=== PATIENT | female | born 1945 | race Caucasian/White ===

== ENCOUNTER 2017-03-10 11:42 | Inpatient (IN) | payer OTHER ==
[~2017-03-10] VITALS: Ht 160 cm; Wt 80.9 kg
[2017-03-10] MEDS ORDERED: PANT40TA5 PO (14:02)
[2017-03-10] MEDS ORDERED: MORP60TA34 PO (14:02)
[2017-03-10] MEDS ORDERED: MORP100T27 PO (14:02)
[2017-03-10] MEDS ORDERED: ONDA4TAB10 PO (14:02)
[2017-03-10] MEDS ORDERED: MELO7.5T31 PO (14:02)
[2017-03-10] MEDS ORDERED: METO-95 PO (14:02)
[2017-03-10] MEDS ORDERED: SERT50TA5 PO (14:02)
[2017-03-10] MEDS ORDERED: OXYC30TA PO (14:02)
[2017-03-10] MEDS: ENOXAPARIN 40 MG/0.4 ML SQ SCH (14:30)
[2017-03-10] MEDS ORDERED: morphine SULFATE 10 MG/ML, 1ML IVPush PRN (14:30)
[2017-03-10] MEDS ORDERED: ENALAPRILAT 1.25 MG/ML, 2ML IVPush PRN (14:30)
[2017-03-10] MEDS ORDERED: ONDANSETRON ODT 4 MG PO PRN (14:30)
[2017-03-10] MEDS ORDERED: ONDANSETRON 2MG/ML, 2ML IVPush PRN (14:30)
[2017-03-10 14:50] LABS: HEMOGLOBIN 12.3 g/dL (11.7-16.4); WHITE BLOOD COUNT 9.7 x10^3/uL (3.4-10)
[2017-03-10] MEDS ORDERED: LABETALOL 5MG/ML, 20ML ONE (14:56)
[2017-03-10] MEDS ORDERED: LABETALOL 5MG/ML, 20ML IVPush PRN (15:00)
[2017-03-10] MEDS: PLEASE ENTER HEIGHT AND WEIGHT MC SCH ×2 (15:00→23:00)
[2017-03-10 15:01] LABS: ASPARTATE AMINO TRANSFERASE 17 U/L (15-37); BLOOD UREA NITROGEN 12 mg/dL (7-18)
[2017-03-10] MEDS: LABETALOL 5MG/ML, 20ML IVPush PRN ×2 (15:01→21:16)
[2017-03-10 15:02] VITALS: BP 204/91
[2017-03-10] MEDS ORDERED: ACETAMINOPHEN 325 MG TABLET ONE (15:33)
[2017-03-10] MEDS: ACETAMINOPHEN 325 MG TABLET PO PRN (15:34)
[2017-03-10] MEDS: OXYcodone IR 30 MG TABLET PO SCH ×2 (16:14→20:07)
[2017-03-10 17:04] LABS: IS PT STATUS REG ER OR PRE ER? NO
[2017-03-10] MEDS: LISINOPRIL 10 MG TABLET PO SCH ×2 (17:24→20:07)
[2017-03-10] MEDS ORDERED: MAGNESIUM SULFATE PMX 2GM/50ML 50 ML IV ONE (18:00)
[2017-03-10 19:15] VITALS: BP 191/96
[2017-03-10] MEDS ORDERED: OMNIPAQUE 350 MG/ML, 100ML BOTTLE ONE (19:17)
[2017-03-10] MEDS ORDERED: morphine SULFATE 60 MG TABLET.ER ONE (19:52)
[2017-03-10] MEDS: morphine SULFATE 60 MG TABLET.ER PO SCH (20:07)
[2017-03-10] MEDS: morphine SULFATE 100 MG TABLET.ER PO SCH (21:00)
[2017-03-10 21:15] VITALS: BP 180/86
[2017-03-10 22:30] VITALS: BP 183/83
[2017-03-10] MEDS: hydrALAzine 20 MG/ML, 1ML IV PRN (22:31)
[2017-03-10 23:02] LABS: IS PT STATUS REG ER OR PRE ER? NO
[2017-03-10 23:25] VITALS: BP 183/100
[2017-03-10] MEDS ORDERED: LORazepam 2 MG/ML, 1ML IVPush PRN (23:30)
[2017-03-10] MEDS ORDERED: hydrALAzine 20 MG/ML, 1ML IV ONE (23:30)
[2017-03-10] MEDS ORDERED: LORazepam 2 MG/ML, 1ML ONE (23:33)
[2017-03-11 00:20] VITALS: BP 149/67
[2017-03-11 02:45] VITALS: BP 150/72
[2017-03-11 05:50] LABS: BLOOD UREA NITROGEN 11 mg/dL (7-18)
[2017-03-11 06:13] LABS: IS PT STATUS REG ER OR PRE ER? NO
[2017-03-11] MEDS: PLEASE ENTER HEIGHT AND WEIGHT MC SCH (07:00)
[2017-03-11 07:05] LABS: HEMATOCRIT 35.2 % (34.6-47.8); HEMOGLOBIN 11.7 g/dL (11.7-16.4); WHITE BLOOD COUNT 6.8 x10^3/uL (3.4-10)
[2017-03-11 07:25] VITALS: BP 177/65
[2017-03-11] MEDS ORDERED: REGADENOSON 0.4 MG/5 ML SYRINGE ONE (08:07)
[2017-03-11] MEDS: HYDROCHLOROTHIAZIDE 25 MG TABLET PO SCH (08:14)
[2017-03-11] MEDS: OXYcodone IR 30 MG TABLET PO SCH ×4 (08:14→23:20)
[2017-03-11] MEDS: PANTOPROZOLE 40MG TABLET PO SCH (08:15)
[2017-03-11] MEDS: LISINOPRIL 10 MG TABLET PO SCH (08:15)
[2017-03-11] MEDS: SERTRALINE 50MG TABLET PO SCH (08:15)
[2017-03-11] MEDS: METOPROLOL SUCCINATE 100 MG TAB.ER.24H PO SCH (08:15)
[2017-03-11] MEDS: ACETAMINOPHEN 325 MG TABLET PO PRN ×4 (08:21→23:20)
[2017-03-11] MEDS: morphine SULFATE 100 MG TABLET.ER PO SCH ×2 (11:11→20:32)
[2017-03-11 12:30] VITALS: BP 181/78
[2017-03-11] MEDS ORDERED: LISINOPRIL 10 MG TABLET PO ONE (14:30)
[2017-03-11] MEDS: ENOXAPARIN 40 MG/0.4 ML SQ SCH (15:30)
[2017-03-11] MEDS: hydrALAzine 20 MG/ML, 1ML IV PRN (17:10)
[2017-03-11] MEDS ORDERED: OMNIPAQUE 350 MG/ML, 100ML BOTTLE ONE (17:33)
[2017-03-11] MEDS ORDERED: DEXAMETHASONE 4 MG/ML, 5ML IVPush PRN (18:30)
[2017-03-11 19:05] VITALS: BP 138/82
[2017-03-11] MEDS: AMLODIPINE 5 MG TABLET PO SCH (20:32)
[2017-03-11] MEDS: AMPICILLIN/SULBACTAM 3 GM in SODIUM CHLORIDE 0.9% 100 ML IV SCH (20:32)
[2017-03-11] MEDS: morphine SULFATE 60 MG TABLET.ER PO SCH (21:00)
[2017-03-11] MEDS: LISINOPRIL 20 MG TABLET PO SCH (23:23)
[2017-03-12 01:16] VITALS: BP 163/83
[2017-03-12] MEDS: AMPICILLIN/SULBACTAM 3 GM in SODIUM CHLORIDE 0.9% 100 ML IV SCH ×3 (02:56→14:17)
[2017-03-12] MEDS: ACETAMINOPHEN 325 MG TABLET PO PRN (05:24)
[2017-03-12] MEDS: OXYcodone IR 30 MG TABLET PO SCH (05:25)
[2017-03-12 06:16] LABS: HEMATOCRIT 37.1 % (34.6-47.8); HEMOGLOBIN 12.4 g/dL (11.7-16.4); WHITE BLOOD COUNT 6.4 x10^3/uL (3.4-10)
[2017-03-12 06:33] LABS: ASPARTATE AMINO TRANSFERASE 21 U/L (15-37); BLOOD UREA NITROGEN 10 mg/dL (7-18)
[2017-03-12 06:43] VITALS: BP 169/83
[2017-03-12] MEDS: morphine SULFATE 100 MG TABLET.ER PO SCH (08:38)
[2017-03-12] MEDS: HYDROCHLOROTHIAZIDE 25 MG TABLET PO SCH (08:43)
[2017-03-12] MEDS: SERTRALINE 50MG TABLET PO SCH (08:43)
[2017-03-12] MEDS: AMLODIPINE 5 MG TABLET PO SCH (08:43)
[2017-03-12] MEDS: PANTOPROZOLE 40MG TABLET PO SCH (08:43)
[2017-03-12] MEDS: LISINOPRIL 20 MG TABLET PO SCH (08:43)
[2017-03-12] MEDS: METOPROLOL SUCCINATE 100 MG TAB.ER.24H PO SCH (08:43)
[2017-03-12] MEDS: OXYcodone IR 30 MG TABLET PO PRN ×2 (09:45→14:17)
[2017-03-12 13:39] VITALS: BP 173/95
[2017-03-12] MEDS ORDERED: morphine SULFATE 100 MG TABLET.ER PO SCH (14:00)
[2017-03-12] MEDS: hydrALAzine 20 MG/ML, 1ML IV PRN (14:18)
[2017-03-12] MEDS ORDERED: LISI-170 PO (14:56)
[2017-03-12] MEDS ORDERED: HYDR25TA6 PO (14:56)
[2017-03-12] MEDS ORDERED: AMLO5TAB2 PO (14:56)
[2017-03-12] MEDS ORDERED: AMOX1TAB64 PO (14:56)
[2017-03-12 15:32] VITALS: BP 121/69
== END 2017-03-12 16:36 | disposition home or self-care (01) | DRG 291 ==
LOC: 5SO 11:42 → UNDOADMIN 11:42 → 5SO 12:35
PROVIDERS: ADMIT Family Medicine; ATTEND Family Medicine
DX: I11.0 Hypertensive heart disease with heart failure (principal); J18.9 Pneumonia, unspecified organism; E44.1 Mild protein-calorie malnutrition; J36 Peritonsillar abscess; I50.30 Unspecified diastolic (congestive) heart failure; E78.5 Hyperlipidemia, unspecified; M19.90 Unspecified osteoarthritis, unspecified site; F32.9 Major depressive disorder, single episode, unspecified; F41.9 Anxiety disorder, unspecified; G89.29 Other chronic pain; I20.9 Angina pectoris, unspecified; K11.20 Sialoadenitis, unspecified; M54.30 Sciatica, unspecified side; Z66 Do not resuscitate; Z79.899 Other long term (current) drug therapy; Z80.51 Family history of malignant neoplasm of kidney; Z82.3 Family history of stroke; Z82.5 Family history of asthma and other chronic lower respiratory diseases; Z83.3 Family history of diabetes mellitus; Z86.19 Personal history of other infectious and parasitic diseases; Z87.11 Personal history of peptic ulcer disease; Z88.5 Allergy status to narcotic agent; Z90.49 Acquired absence of other specified parts of digestive tract; Z90.710 Acquired absence of both cervix and uterus; Z68.31 Body mass index [BMI] 31.0-31.9, adult; I50.33 Acute on chronic diastolic (congestive) heart failure
CPT/HCPCS: 36415; 70491; 71275; 78452; 80048; 80053; 83735; 83880; 84484; 85025; 85379; 85610; 85730; 93005; 93017; 93306; J0295; J2405; J2785; Q9967; A9502; C9898; J0360; J2060; J3475

== ENCOUNTER 2017-03-24 13:19 | Inpatient (IN) | payer OTHER ==
[~2017-03-24] VITALS: Ht 157.5 cm; Wt 86.7 kg
[~2017-03-24 13:19] MED LIST: AMLO5TAB2 PO; AMOX1TAB64 PO; HYDR25TA6 PO; LISI-170 PO; MELO7.5T31 PO; METO-95 PO; MORP100T27 PO; MORP60TA34 PO; ONDA4TAB10 PO; OXYC30TA PO; PANT40TA5 PO; SERT50TA5 PO
[2017-03-24] MEDS ORDERED: SODIUM CHLORIDE 0.9%, 500ML IVBOLUS ONE (14:00)
[2017-03-24 14:18] LABS: HEMOGLOBIN 11.9 g/dL (11.7-16.4); WHITE BLOOD COUNT 29.3 x10^3/uL (3.4-10)
[2017-03-24 14:38] LABS: ASPARTATE AMINO TRANSFERASE 25 U/L (15-37); BLOOD UREA NITROGEN 57 mg/dL (7-18)
[2017-03-24 14:51] LABS: DIFF TOTAL CELLS COUNTED 200 CELL DIFF
[2017-03-24 14:52] LABS: VERIFY COUNTS? YES
[2017-03-24] MEDS ORDERED: ONDANSETRON ODT 4 MG PO PRN (16:00)
[2017-03-24] MEDS ORDERED: LABETALOL 5MG/ML, 20ML IVPush PRN (16:00)
[2017-03-24] MEDS ORDERED: OXYcodone IR 30 MG TABLET PO SCH (16:00)
[2017-03-24] MEDS ORDERED: ONDANSETRON 2MG/ML, 2ML IVPush PRN (16:00)
[2017-03-24 16:29] LABS: HEMOGLOBIN 11.4 g/dL (11.7-16.4); WHITE BLOOD COUNT 27.9 x10^3/uL (3.4-10)
[2017-03-24 16:31] LABS: DIFF TOTAL CELLS COUNTED 100 CELL DIFF
[2017-03-24 16:33] LABS: BLOOD UREA NITROGEN 57 mg/dL (7-18)
[2017-03-24] MEDS ORDERED: POTASSIUM CHLORIDE 20 MEQ TAB.ER.PRT PO ONE (17:00)
[2017-03-24 17:06] LABS: VERIFY COUNTS? YES
[2017-03-24 17:10] LABS: POTASSIUM,URINE RANDOM 26 mmol/L
[2017-03-24] MEDS ORDERED: HEPARIN 5,000 UNITS/ML, 1ML ONE (18:06)
[2017-03-24] MEDS ORDERED: POTASSIUM CHLORIDE 20 MEQ TAB.ER.PRT ONE (18:06)
[2017-03-24] MEDS: HEPARIN 5,000 UNITS/ML, 1ML SQ SCH (18:12)
[2017-03-24] MEDS: SODIUM CHLORIDE 0.9% 1,000 ML IV SCH (21:46)
[2017-03-24] MEDS: OXYcodone IR 5MG TABLET PO SCH (21:47)
[2017-03-24] MEDS: morphine SULFATE 60 MG TABLET.ER PO SCH (21:48)
[2017-03-24 21:58] VITALS: BP 103/61
[2017-03-25 02:46] VITALS: BP 165/72
[2017-03-25 02:48] VITALS: BP 133/69
[2017-03-25 02:49] VITALS: BP 125/72
[2017-03-25] MEDS: OXYcodone IR 5MG TABLET PO SCH ×4 (05:45→20:48)
[2017-03-25] MEDS: HEPARIN 5,000 UNITS/ML, 1ML SQ SCH ×3 (05:45→20:48)
[2017-03-25] MEDS: SODIUM CHLORIDE 0.9% 1,000 ML IV SCH ×3 (05:46→22:45)
[2017-03-25 05:58] LABS: HEMATOCRIT 33.8 % (34.6-47.8); HEMOGLOBIN 11.2 g/dL (11.7-16.4); WHITE BLOOD COUNT 21.7 x10^3/uL (3.4-10)
[2017-03-25 05:59] LABS: BLOOD UREA NITROGEN 55 mg/dL (7-18)
[2017-03-25 07:20] VITALS: BP 131/65
[2017-03-25] MEDS ORDERED: CEFTRIAXONE PMX 1GM/50ML 50 ML IV SCH (07:30)
[2017-03-25] MEDS: METOPROLOL SUCCINATE 100 MG TAB.ER.24H PO SCH (09:18)
[2017-03-25] MEDS: METRONIDAZOLE PMX 500MG/100ML 100 ML IV SCH ×2 (09:18→16:37)
[2017-03-25] MEDS: morphine SULFATE 100 MG TABLET.ER PO SCH ×2 (09:19→15:56)
[2017-03-25 14:55] VITALS: BP 144/79
[2017-03-25 15:43] LABS: BLOOD UREA NITROGEN 50 mg/dL (7-18)
[2017-03-25 19:49] VITALS: BP 137/72
[2017-03-25] MEDS: morphine SULFATE 60 MG TABLET.ER PO SCH (20:48)
[2017-03-25] MEDS: HYDROcodone/APAP 5/325 TABLET PO PRN (22:54)
[2017-03-26] MEDS: METRONIDAZOLE PMX 500MG/100ML 100 ML IV SCH ×3 (00:58→16:51)
[2017-03-26 00:59] VITALS: BP 108/81
[2017-03-26] MEDS: HEPARIN 5,000 UNITS/ML, 1ML SQ SCH ×3 (05:00→20:05)
[2017-03-26 05:36] LABS: HEMOGLOBIN 10.5 g/dL (11.7-16.4); WHITE BLOOD COUNT 17.7 x10^3/uL (3.4-10)
[2017-03-26 05:49] LABS: BLOOD UREA NITROGEN 44 mg/dL (7-18)
[2017-03-26] MEDS: OXYcodone IR 5MG TABLET PO SCH ×4 (06:08→20:14)
[2017-03-26] MEDS: SODIUM CHLORIDE 0.9% 1,000 ML IV SCH ×2 (06:08→16:51)
[2017-03-26 06:25] LABS: DIFF TOTAL CELLS COUNTED 100 CELL DIFF
[2017-03-26 06:28] LABS: POLYCHROMASIA 1+; VERIFY COUNTS? YES
[2017-03-26 06:32] LABS: LARGE PLATELETS 1+
[2017-03-26 08:45] VITALS: BP 128/81
[2017-03-26] MEDS: morphine SULFATE 100 MG TABLET.ER PO SCH ×2 (08:46→16:51)
[2017-03-26] MEDS: METOPROLOL SUCCINATE 100 MG TAB.ER.24H PO SCH (08:46)
[2017-03-26 13:20] VITALS: BP 162/85
[2017-03-26 19:23] VITALS: BP 160/83
[2017-03-26] MEDS: morphine SULFATE 60 MG TABLET.ER PO SCH (20:15)
[2017-03-27 00:40] VITALS: BP 150/68
[2017-03-27] MEDS: HYDROcodone/APAP 5/325 TABLET PO PRN (00:50)
[2017-03-27] MEDS: METRONIDAZOLE PMX 500MG/100ML 100 ML IV SCH ×4 (00:51→20:33)
[2017-03-27] MEDS: SODIUM CHLORIDE 0.9% 1,000 ML IV SCH ×2 (03:18→15:46)
[2017-03-27] MEDS: HEPARIN 5,000 UNITS/ML, 1ML SQ SCH ×3 (05:00→20:32)
[2017-03-27] MEDS: OXYcodone IR 5MG TABLET PO SCH ×4 (06:03→20:33)
[2017-03-27 06:19] LABS: HEMATOCRIT 32.9 % (34.6-47.8); HEMOGLOBIN 10.9 g/dL (11.7-16.4); WHITE BLOOD COUNT 21.5 x10^3/uL (3.4-10)
[2017-03-27 06:28] LABS: ASPARTATE AMINO TRANSFERASE 8 U/L (15-37); BLOOD UREA NITROGEN 17 mg/dL (7-18)
[2017-03-27 07:18] VITALS: BP 169/83
[2017-03-27] MEDS ORDERED: MAGNESIUM SULFATE PMX 2GM/50ML 50 ML IV ONE (08:30)
[2017-03-27] MEDS: METOPROLOL SUCCINATE 100 MG TAB.ER.24H PO SCH (10:01)
[2017-03-27] MEDS: morphine SULFATE 100 MG TABLET.ER PO SCH ×2 (10:02→15:46)
[2017-03-27] MEDS: VANCOMYCIN 50 MG/ML ORAL SUSP PO SCH ×3 (11:39→23:31)
[2017-03-27 13:22] VITALS: BP 177/94
[2017-03-27 19:18] VITALS: BP 151/83
[2017-03-27] MEDS: morphine SULFATE 60 MG TABLET.ER PO SCH (20:37)
[2017-03-28 01:15] VITALS: BP 156/89
[2017-03-28] MEDS: METRONIDAZOLE PMX 500MG/100ML 100 ML IV SCH ×3 (03:23→20:15)
[2017-03-28] MEDS: HYDROcodone/APAP 5/325 TABLET PO PRN (03:23)
[2017-03-28] MEDS: HEPARIN 5,000 UNITS/ML, 1ML SQ SCH ×3 (04:46→20:10)
[2017-03-28 05:36] LABS: HEMATOCRIT 33.9 % (34.6-47.8); HEMOGLOBIN 11.2 g/dL (11.7-16.4); WHITE BLOOD COUNT 24.6 x10^3/uL (3.4-10)
[2017-03-28] MEDS: OXYcodone IR 5MG TABLET PO SCH ×4 (05:50→20:15)
[2017-03-28] MEDS: VANCOMYCIN 50 MG/ML ORAL SUSP PO SCH ×4 (05:50→23:44)
[2017-03-28 06:14] LABS: ASPARTATE AMINO TRANSFERASE 11 U/L (15-37); BLOOD UREA NITROGEN 7 mg/dL (7-18)
[2017-03-28 07:25] VITALS: BP 149/82
[2017-03-28] MEDS: morphine SULFATE 100 MG TABLET.ER PO SCH ×2 (09:00→16:06)
[2017-03-28] MEDS: METOPROLOL SUCCINATE 100 MG TAB.ER.24H PO SCH (09:00)
[2017-03-28] MEDS: SODIUM CHLORIDE 0.9% 1,000 ML IV SCH (09:00)
[2017-03-28 13:10] VITALS: BP 188/98
[2017-03-28 19:53] VITALS: BP 165/88
[2017-03-28] MEDS: morphine SULFATE 60 MG TABLET.ER PO SCH (20:15)
[2017-03-29 00:55] VITALS: BP 162/83
[2017-03-29] MEDS: HYDROcodone/APAP 5/325 TABLET PO PRN (02:14)
[2017-03-29] MEDS: SODIUM CHLORIDE 0.9% 1,000 ML IV SCH ×2 (02:15→17:38)
[2017-03-29] MEDS: HEPARIN 5,000 UNITS/ML, 1ML SQ SCH ×3 (05:00→21:00)
[2017-03-29] MEDS: OXYcodone IR 5MG TABLET PO SCH ×4 (05:24→21:11)
[2017-03-29] MEDS: VANCOMYCIN 50 MG/ML ORAL SUSP PO SCH ×4 (05:24→23:33)
[2017-03-29] MEDS: METRONIDAZOLE PMX 500MG/100ML 100 ML IV SCH ×3 (05:24→21:10)
[2017-03-29 07:43] VITALS: BP 159/82
[2017-03-29 08:58] LABS: HEMATOCRIT 37.1 % (34.6-47.8); HEMOGLOBIN 12.1 g/dL (11.7-16.4)
[2017-03-29 09:06] LABS: BLOOD UREA NITROGEN 5 mg/dL (7-18)
[2017-03-29] MEDS: METOPROLOL SUCCINATE 100 MG TAB.ER.24H PO SCH (09:22)
[2017-03-29] MEDS: morphine SULFATE 100 MG TABLET.ER PO SCH ×2 (09:22→15:34)
[2017-03-29 09:49] LABS: DIFF TOTAL CELLS COUNTED 100 CELL DIFF
[2017-03-29 09:54] LABS: ANISOCYTOSIS 1+; VERIFY COUNTS? YES
[2017-03-29 11:59] LABS: PATH.CAST-FLAG NOT PRESENT; SPERM-FLAG NOT PRESENT; SRC-FLAG NOT PRESENT; XTAL-FLAG NOT PRESENT; YLC-FLAG NOT PRESENT
[2017-03-29 13:39] VITALS: BP 167/84
[2017-03-29] MEDS: morphine SULFATE 60 MG TABLET.ER PO SCH (21:10)
[2017-03-29 21:13] VITALS: BP 180/82
[2017-03-29 22:04] VITALS: BP 158/81
[2017-03-30] MEDS: HYDROcodone/APAP 5/325 TABLET PO PRN (01:53)
[2017-03-30 01:54] VITALS: BP 169/85
[2017-03-30] MEDS: HEPARIN 5,000 UNITS/ML, 1ML SQ SCH ×2 (05:00→13:00)
[2017-03-30] MEDS: METRONIDAZOLE PMX 500MG/100ML 100 ML IV SCH ×2 (05:49→13:28)
[2017-03-30] MEDS: VANCOMYCIN 50 MG/ML ORAL SUSP PO SCH ×2 (05:49→11:03)
[2017-03-30] MEDS: OXYcodone IR 5MG TABLET PO SCH ×2 (05:49→11:03)
[2017-03-30 06:11] LABS: HEMATOCRIT 32.4 % (34.6-47.8); HEMOGLOBIN 10.6 g/dL (11.7-16.4); WHITE BLOOD COUNT 17.8 x10^3/uL (3.4-10)
[2017-03-30 06:17] LABS: BLOOD UREA NITROGEN 6 mg/dL (7-18)
[2017-03-30 07:34] VITALS: BP 158/79
[2017-03-30] MEDS: SODIUM CHLORIDE 0.9% 1,000 ML IV SCH (08:15)
[2017-03-30] MEDS: METOPROLOL SUCCINATE 100 MG TAB.ER.24H PO SCH (08:15)
[2017-03-30] MEDS: morphine SULFATE 100 MG TABLET.ER PO SCH (08:42)
[2017-03-30] MEDS ORDERED: SODIUM CHLORIDE 0.9% 1,000ML IVBOLUS ONE (09:30)
[2017-03-30] MEDS ORDERED: VANC1VIA3 PO (11:38)
[2017-03-30] MEDS ORDERED: METR500T PO (11:38)
[2017-03-30] MEDS ORDERED: LISI-170 PO (11:40)
[2017-03-30 12:47] VITALS: BP 176/83
== END 2017-03-30 15:46 | disposition home or self-care (01) | DRG 371 ==
LOC: ED 15:15 → EDIP 15:16 → ED 15:36 → 3NE 19:48
PROVIDERS: ADMIT Internal Medicine; ATTEND Internal Medicine
DX: A04.72 Enterocolitis due to Clostridium difficile, not specified as recurrent (principal); N17.0 Acute kidney failure with tubular necrosis; I50.32 Chronic diastolic (congestive) heart failure; E87.1 Hypo-osmolality and hyponatremia; F11.20 Opioid dependence, uncomplicated; I11.0 Hypertensive heart disease with heart failure; E86.0 Dehydration; R55 Syncope and collapse; E78.5 Hyperlipidemia, unspecified; E87.6 Hypokalemia; F32.9 Major depressive disorder, single episode, unspecified; F41.1 Generalized anxiety disorder; G89.29 Other chronic pain; M19.90 Unspecified osteoarthritis, unspecified site; M54.30 Sciatica, unspecified side; Z66 Do not resuscitate; Z80.51 Family history of malignant neoplasm of kidney; Z82.3 Family history of stroke; Z82.5 Family history of asthma and other chronic lower respiratory diseases; Z86.19 Personal history of other infectious and parasitic diseases; Z83.3 Family history of diabetes mellitus; Z98.84 Bariatric surgery status; Z87.11 Personal history of peptic ulcer disease
CPT/HCPCS: 36415; 71010; 71020; 74020; 76770; 80048; 80053; 81001; 82040; 82436; 82570; 83735; 83880; 83930; 83935; 84100; 84133; 84300; 85025; 87040; 87086; 87324; 89055; 93005; 96360; J0696; J1644; J3370; J3475; J7030; J7040